=== PATIENT | female | born 1955 | race Caucasian/White ===

== ENCOUNTER 2018-08-15 20:48 | Emergency (ER) | payer SELFPAY ==
[2018-08-15] MEDS ORDERED: methylPREDNISolone Sod Succ/PF 125 MG/2 ML VIAL ONE (21:21)
[2018-08-15 21:26] LABS: #Basophils 0.1 thou/uL (0.0-0.2); #Eosinphils 0.1 thou/uL (0.0-0.7); #Lymphocytes 2.5 thou/uL (1.20-3.40); #Monocytes 0.9 thou/uL (0.11-0.59); #Neutrophils 3.9 thou/uL (1.40-6.50); %Basophils 1.4 % (0.0-1.0); %Eosinophils 1.9 % (0.0-10.0); %Lymphocytes 33.8 % (21.0-51.0); %Monocytes 11.6 % (0.0-10.0); %Neutrophils 51.4 % (42.0-75.0); Hemoglobin 13.8 g/dL (12.0-16.0); Mean Corpuscular HGB CONC 31.2 g/dL (32.0-36.0); Mean Corpuscular Hemoglobin 28.9 pg (27.0-31.0); Mean Corpuscular Volume 92.7 fL (78.0-98.0); Platelet Count 178 thou/uL (130-400); Red Blood Cell (RBC) Count 4.79 mill/uL (4.20-5.40); White Blood Cell (WBC) Count 7.5 thou/uL (4.8-10.8)
[2018-08-15 21:41] LABS: ALT (SGPT) 8 U/L (8-55); AST (SGOT) 15 U/L (5-34); Albumin 4.1 g/dL (3.4-4.8); Alkaline Phosphatase 86 U/L (40-150); Anion Gap 16 mmol/L (10-20); BUN (Urea Nitrogen) 22 mg/dL (9.8-20.1); Bilirubin, Total 0.2 mg/dL (0.2-1.2); Calc. Creatinine Clearance 0 mL/min (70-130); Calcium 9.5 mg/dL (7.8-10.44); Carbon Dioxide 25 mmol/L (23-31); Chloride 105 mmol/L (98-107); Estimated GFR-MDRD 74; Globulin 2.9 g/dL (2.4-3.5); Glucose 121 mg/dL (80-115); Magnesium 2.4 mg/dL (1.6-2.6); Potassium 3.7 mmol/L (3.5-5.1); Sodium 142 mmol/L (136-145)
--- NOTE | 2018-08-15 21:52 | RAD ---
TWO VIEWS CHEST: 08/15/18 HISTORY: Dyspnea. PA and lateral views of the chest is obtained Old healed right 8th and 9th rib fractures seen. Additional left sided old healed rib fracture is al so seen. No evidence of acute intrathoracic abnormalities noted. No evidence of effusions, pneumonia, or pneum othorax seen. IMPRESSION: Old healed bilateral rib fractures with no evidence of acute intrathoracic abnormalities noted. POS: [facility]
[2018-08-15] MEDS ORDERED: Azithromycin 250 MG TAB ONE (22:40)
[2018-08-15] MEDS ORDERED: Aspirin Chewable 81 MG TAB ONE (22:40)
[2018-08-16 00:59] LABS: Troponin I Less than 0.010 ng/mL (< 0.028)
[2018-08-16] MEDS ORDERED: Albuterol Sulfate 2.5 mg/3 ml Neb ONE (01:04)
[2018-08-16] MEDS ORDERED: Ibuprofen 200 MG TAB ONE (01:11)
== END 2018-08-16 01:23 | disposition home or self-care (01) ==
LOC: NAV ERS 20:48
DX: J44.1 Chronic obstructive pulmonary disease with (acute) exacerbation (principal); I10 Essential (primary) hypertension; F32.9 Major depressive disorder, single episode, unspecified; Z87.891 Personal history of nicotine dependence
CPT/HCPCS: 71046; 80053; 83735; 84484; 85025; 93005; 94760; 96374; J2930; J7611

== ENCOUNTER 2018-09-10 05:35 | Emergency (ER) | payer SELFPAY ==
[2018-09-10] MEDS ORDERED: Aspirin Chewable 81 MG TAB ONE (06:12)
[2018-09-10] MEDS ORDERED: Morphine 4 MG/ML VIAL ONE (06:12)
[2018-09-10 06:18] LABS: #Basophils 0.1 thou/uL (0.0-0.2); #Eosinphils 0.1 thou/uL (0.0-0.7); #Lymphocytes 1.8 thou/uL (1.20-3.40); #Monocytes 0.7 thou/uL (0.11-0.59); #Neutrophils 4.5 thou/uL (1.40-6.50); %Basophils 1.2 % (0.0-1.0); %Eosinophils 1.5 % (0.0-10.0); %Lymphocytes 24.8 % (21.0-51.0); %Monocytes 9.3 % (0.0-10.0); %Neutrophils 63.3 % (42.0-75.0); Mean Corpuscular HGB CONC 31.7 g/dL (32.0-36.0); Mean Corpuscular Hemoglobin 28.5 pg (27.0-31.0); Platelet Count 189 thou/uL (130-400); RBC Distribution Width 11.7 % (11.5-14.5); White Blood Cell (WBC) Count 7.1 thou/uL (4.8-10.8)
[2018-09-10 06:30] LABS: ALT (SGPT) 9 U/L (8-55); AST (SGOT) 15 U/L (5-34); Albumin 4.1 g/dL (3.4-4.8); Alkaline Phosphatase 70 U/L (40-150); Anion Gap 17 mmol/L (10-20); BUN (Urea Nitrogen) 18 mg/dL (9.8-20.1); Bilirubin, Total 0.3 mg/dL (0.2-1.2); Calc. Creatinine Clearance 0 mL/min (70-130); Calcium 9.3 mg/dL (7.8-10.44); Carbon Dioxide 23 mmol/L (23-31); Chloride 108 mmol/L (98-107); Estimated GFR-MDRD 73; Globulin 2.9 g/dL (2.4-3.5); Glucose 109 mg/dL (80-115); Potassium 4.2 mmol/L (3.5-5.1); Sodium 144 mmol/L (136-145)
[2018-09-10] MEDS ORDERED: Ondansetron PF 4 MG/2 ML Vial ONE (07:00)
[2018-09-10] MEDS ORDERED: cloNIDine 0.2 MG TAB ONE (07:00)
--- NOTE | 2018-09-10 08:26 | RAD ---
CHEST 2 VIEWS: INDICATION: COPD exacerbation. COMPARISON: Prior exam dated 08/15/2018. FINDINGS: The lungs are hyperexpanded but clear. The patient is rotated to the left on the PA projection sligh tly limiting exam. Heart size is within normal limits. There is a superior end plate compression de formity of T12 which is stable. IMPRESSION: Stable chronic obstructive pulmonary disease change. POS: [facility]
== END 2018-09-10 10:16 | disposition home or self-care (01) ==
LOC: NAV ERS 05:35
DX: J44.1 Chronic obstructive pulmonary disease with (acute) exacerbation (principal); I10 Essential (primary) hypertension; F32.9 Major depressive disorder, single episode, unspecified; Z87.891 Personal history of nicotine dependence
CPT/HCPCS: 71046; 80053; 83880; 84484; 85025; 96374; 96375; J2270; J2405

== ENCOUNTER 2018-12-14 14:34 | Emergency (ER) | payer SELFPAY ==
[2018-12-14] MEDS ORDERED: Albuterol Sulfate 2.5 mg/3 ml Neb ONE (15:03)
== END 2018-12-14 15:30 | disposition home or self-care (01) ==
LOC: NAV ERS 14:34
DX: J44.9 Chronic obstructive pulmonary disease, unspecified (principal); I10 Essential (primary) hypertension; Z86.73 Personal history of transient ischemic attack (TIA), and cerebral infarction without residual deficits; F32.9 Major depressive disorder, single episode, unspecified; Z87.891 Personal history of nicotine dependence; Z79.899 Other long term (current) drug therapy; Z79.51 Long term (current) use of inhaled steroids
CPT/HCPCS: 93005; J7611

== ENCOUNTER 2019-10-31 14:01 | Emergency (ER) | payer SELFPAY ==
[2019-10-31 14:44] LABS: #Basophils 0.1 thou/uL (0.0-0.2); #Eosinphils 0.7 thou/uL (0.0-0.7); #Lymphocytes 1.3 thou/uL (1.20-3.40); #Monocytes 0.5 thou/uL (0.11-0.59); #Neutrophils 5.3 thou/uL (1.40-6.50); %Basophils 1.2 % (0.0-1.0); %Eosinophils 8.7 % (0.0-10.0); %Monocytes 6.8 % (0.0-10.0); %Neutrophils 67.3 % (42.0-75.0); Hemoglobin 12.9 g/dL (12.0-16.0); Mean Corpuscular HGB CONC 30.5 g/dL (32.0-36.0); Mean Corpuscular Hemoglobin 29.1 pg (27.0-31.0); Mean Corpuscular Volume 95.5 fL (78.0-98.0); Mean Platelet Volume 10.5 fL (7.4-10.4); Platelet Count 190 thou/uL (130-400); RBC Distribution Width 12.7 % (11.5-14.5); Red Blood Cell (RBC) Count 4.42 mill/uL (4.20-5.40); White Blood Cell (WBC) Count 7.8 thou/uL (4.8-10.8)
[2019-10-31 14:52] LABS: Bilirubin Negative (Negative); Blood, Urine Negative (Negative); Clarity Clear (Clear); Glucose, Urine (Dipstick) Negative (Negative); Ketone, Urine Negative (Negative); Leukocyte Negative (Negative); Nitrite Negative (Negative); Protein, Urine (Dipstick) Negative (Neg-Trace); Specific Gravity, Urine 1.015 (1.005-1.030); Urobilinogen 0.2 mg/dL (Less than 2)
[2019-10-31 14:58] LABS: ALT (SGPT) 7 U/L (8-55); AST (SGOT) 10 U/L (5-34); Acetaminophen Less than 6.0 mcg/mL (10.0-30.0); Albumin 4.2 g/dL (3.4-4.8); Alcohol Less than 10 mg/dL (Less than 10); Alkaline Phosphatase 75 U/L (40-110); Anion Gap 14 mmol/L (10-20); BUN (Urea Nitrogen) 14 mg/dL (9.8-20.1); Bilirubin, Total 0.2 mg/dL (0.2-1.2); Calc. Creatinine Clearance 0 mL/min (70-130); Calcium 9.9 mg/dL (7.8-10.44); Carbon Dioxide 24 mmol/L (23-31); Chloride 102 mmol/L (98-107); Estimated GFR-MDRD 65; Globulin 2.7 g/dL (2.4-3.5); Glucose 139 mg/dL (80-115); Potassium 4.1 mmol/L (3.5-5.1); Protein, Total 6.9 g/dL (6.0-8.3); Salicylate Less than 8.0 mg/dL (15.0-30.0); Sodium 136 mmol/L (136-145)
--- NOTE | 2019-10-31 14:59 | RAD ---
PORTABLE CHEST 1 VIEW: Date: 10/31/2019 Time: 1446 hours HISTORY: Dyspnea. COMPARISON: 04/03/2019. FINDINGS: The heart size is normal. The aorta is tortuous. The lungs are well expanded without lobar consolidat ion, pneumothoraces, or pleural effusions. IMPRESSION: No acute process. POS: [facility]
[2019-10-31 15:04] LABS: Amphetamine Not Detected (NotDetected); Barbiturates Screen Not Detected (NotDetected); Benzodiazepine Screen Detected (NotDetected); Cocaine Metabolite Screen Not Detected (NotDetected); Medtox Control Line Valid? VALID (VALID); Methadone Not Detected (NotDetected); Methamphetamine Not Detected (NotDetected); Opiate Screen Detected (NotDetected); Oxycodone Screen Not Detected (NotDetected); Phencyclidine (PCP) Not Detected (NotDetected); THC/Cannabinoid Screen Not Detected (NotDetected); Tricyclic Screen Not Detected (NotDetected)
[2019-10-31] MEDS ORDERED: Acetaminophen 500 MG TAB ONE (15:09)
[2019-10-31] MEDS ORDERED: Ondansetron ODT 4 MG TAB ONE (16:30)
== END 2019-10-31 20:34 | disposition home or self-care (01) ==
LOC: NAV ERS 14:01
DX: F32.9 Major depressive disorder, single episode, unspecified (principal); M54.9 Dorsalgia, unspecified; G89.29 Other chronic pain; Z76.0 Encounter for issue of repeat prescription; J44.9 Chronic obstructive pulmonary disease, unspecified; I10 Essential (primary) hypertension; Z86.73 Personal history of transient ischemic attack (TIA), and cerebral infarction without residual deficits; Z79.51 Long term (current) use of inhaled steroids; Z79.899 Other long term (current) drug therapy; Z87.891 Personal history of nicotine dependence
CPT/HCPCS: 51701; 71045; 80053; 80306; 80307; 81003; 83605; 83880; 84484; 85025; 93005; Q0162